=== PATIENT | female | born 1950 | race African-American/Black ===

== ENCOUNTER 2016-08-31 12:58 | Day surgery (SDC) | payer MEDICARE, BC ==
[~2016-08-31 12:58] MED LIST: CEPH500C3 PO; OMEP20TA39 PO; SULF1TAB47 PO
[2016-08-31 13:42] VITALS: BP 150/92; PULSE 89; RESP 14; TEMP 97.6; O2SAT 98
[2016-08-31 14:35] VITALS: BP 141/90; PULSE 81; RESP 14; TEMP 98.4; O2SAT 99
[2016-08-31] MEDS ORDERED: LIDOCAINE HCL 1% 30 ML VIAL ONE (14:37)
[2016-08-31] MEDS ORDERED: SODIUM BICARBONATE 8.4% INJ 50 ML ONE (14:37)
[2016-08-31 14:49] VITALS: BP 146/98; PULSE 72; RESP 16; O2SAT 98
--- NOTE | 2016-08-31 15:07 | RADRPT ---
EXAM DATE/TIME: 08/31/2016 13:34 [place] COMPARISON: No previous studies available for comparison. INDICATIONS : Right thyroid nodule. MEDICAL HISTORY : Multiple sclerosis. Hypertension. SURGICAL HISTORY : None. ENCOUNTER: Initial ACUITY: 1 day PAIN SCORE: 2/10 LOCATION: Right neck ORGAN: Right thyroid lobe SPECIMENS: Three fine needle aspirate(s) submitted for pathologic evaluation. DEVICE: 22 gauge needle Post procedure scanning reveals no hematoma or other complication. The possibility does exist that the tissue obtained will be non-diagnostic. If the sample is non-diag nostic a repeat biopsy or surgical biopsy may need to be performed. TECHNIQUE: 1. Ultrasound guidance for needle biopsy. 2. Needle biopsy. The risks, benefits, and alternatives to ultrasound guided needle biopsy were explained to the patien t in detail including the risk of bleeding and infection. Written and verbal informed consent was ob tained. With the patient on the ultrasound table, images were obtained. Overlying skin was prepped and drape d in the usual sterile fashion and Lidocaine was utilized as a local anesthetic. A needle was advanced into the identified target and the number of specimens as above obtained and tadeo bmitted for pathologic evaluation. The patient tolerated the procedure well and left the ultrasound suite in stable condition. CONCLUSION: Uncomplicated ultrasound guided needle biopsy. Igor Mosqueda MD FACR on August 31, 2016 at 15:03 Board Certified Radiologist. This report was verified electronically.
== END 2016-08-31 15:05 | disposition home or self-care (01) ==
LOC: HRAD 12:58 → HRIP 13:00 → HRAD 15:05
PROVIDERS: ATTEND Otolaryngology Otolaryngology/Facial Plastic Surgery
DX: E04.1 Nontoxic single thyroid nodule (principal); G35 Multiple sclerosis; I10 Essential (primary) hypertension
CPT/HCPCS: 10022; 76942; 88172; 88173